=== PATIENT | female | born 2005 | race Caucasian/White ===

== ENCOUNTER 2025-06-05 16:05 | Emergency (ER) | payer OTHER, SELFPAY ==
--- OUTSIDE RECORDS SUMMARY | 2025-06-05 16:08 | XMS_ITS | Clinical Summary ---
Author Organization [facility] [email or web address] Address [address] 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 This disclosure is being madepursuant to the Care Everywhere program and may not contain all information available regarding this patient. Last updated [email or web address] Allergies No known active allergies Medications * Be aware that medications may not be up to date on this document. Alwaysverify current medications with the patient. trimethoprim-po lymyxin B (POLYTRIM) 69157-7.1 UNIT/ML-% ophthalmic solution Instill 1 Drop into right eye 4 times daily. 10 mL 0 0 Active Additional Information Patient not taking.Reported on 08/26/2016 oseltamivir phosphate (TAMIFLU) 6 MG/ML suspension Take 10 mL by mouth 2 times daily 100 mL 9 Active Immunizations Immunization Administration Dates Next Due DTAP/IPV 12/18/2010 DTaP VACCINE IM (6wk-6yrs) 12/21/2007,03/30/2006 ,02/08/2006,2005 HEP A PEDS 2 DOSE 01/07/2009,12/21/2007 HEP B VACCINE, PED/ADOL 03/30/2006,2005, HIB BOOSTER 03/30/2006,02/08/2006,2005 MMR 12/18/2010,11/24/2006 PNEUMOCOCCAL CONJ, PEDS 11/24/2006,03/30/2006,,2005 POLIO IPV 03/30/2006,02/06/2006,2005 VARICELLA 12/18/2010,11/24/2006 Family History Medical History Relation Name Comments Allergies Brother Allergies Father Hypercholesterolemia Maternal Grandfather Other Maternal Grandfather Hearing Loss - Occupational Exposure Hypercholesterolemia Maternal Grandmother Hypercholesterolemia Paternal Grandfather Hypertension Paternal Grandfather Relation Name Status Comments Brother Father Maternal Grandfather Maternal Grandmother Paternal Grandfather Social History Tobacco Use Types Packs/Day Years Used Date Smoking Tobacco: Never Smokeless Tobacco: Never Comments:non smoking househo ld Comments No Sex and Gender Information Value Date Recorded Sex Assigned at Not on file Legal Sex Female 9:58 AM CDT Gender Identity Not on file Sexual Orientation Not on file Last Filed Vital Signs Vital Sign Reading Time Taken Comments Blood Pressure 100/68 07/29/2018 3:46 PM LIDAR SCIENTIST Pulse 110 07/29/2018 3:46 PM LIDAR SCIENTIST Temperature 36.6 C (97.9 F) 07/29/2018 3:46 PM LIDAR SCIENTIST Respiratory Rate 18 07/29/2018 3:46 PM LIDAR SCIENTIST Oxygen Saturation 97% 07/29/2018 3:46 PM LIDAR SCIENTIST Inhaled Oxygen Concentration - - Weight 39.9 kg (88 lb) 07/29/2018 3:46 PM LIDAR SCIENTIST Height 149.9 cm (4' 11) 07/29/2018 3:46 PM LIDAR SCIENTIST Body Mass Index 17.77 07/29/2018 3:46 PM LIDAR SCIENTIST Body Mass Index Percentile 37.38% 07/29/2018 3:4 6 PM LIDAR SCIENTIST Growth Chart: CDC (Girls, 2- 20 Years) Plan of Treatment Health Maintenance Due Date Last Done Comments DTAP/TDAP/TD VACCINES (6 - Tdap) 2016 12/18/2010, 12/21/2007, 03/30/2006, Additional history exists HIV SCREENING 2020 HPV VACCINE (1 - 3-dose series) 2020 CHLAMYDIA/GONORRHEA SCREENING 2021 MENINGOCOCCAL (Group B) VACCINE SHARED DECISION-MAKING (1 of 2 - Standard) 2021 HEPATITIS C SCREENING 09/20/2023 DEPRESSION SCREENING 06/14/2024 COVID-19 VACCINE ( season) 2025 INFLUENZA VACCINE (#1) 2025 ZOSTER VACCINE (1 of 2) 09/25/2055 HEPATITIS B VACCINE Completed 03/30/2006, 2005, 2005 HIB VACCINE Aged Out 03/30/2006, 01/13, 2005 No longer eligible based on patient's age to complete this topic PNEUMOCOCCAL VACCINE Completed 11/24/2006, 03/30/2006, 02/08/2006, Additional history exists MENINGOCOCCAL GROUPS A/C/Y/W VACCINE Aged Out No longer eligible based on patient's age to complete this topic Insurance [employer] [facility] Address: [facility] [id number] [place] [address] * Guarantor: MARLA CORTES Account Type Relation to Patient Date of Phone Billing Address Personal/Family 2005 CO LORENZA CORTES [address] [place] [id number]
[2025-06-05 16:12] VITALS: BP 107/67; PULSE 80; RESP 16; TEMP 36.5; O2SAT 100
--- NOTE | 2025-06-05 16:30 | ED.SKABFB ---
HPI - Skin/Abscess/Foreign Bdy General Chief complaint: Skin/Abscess/Foreign Body Stated complaint: Skin Source: patient and family Mode of arrival: ambulatory Limitations: no limitations History of Present Illness HPI narrative: This is a 19 year old female patient that presents to the urgent care with reports of a rash to her face, hands, arms, and bilateral hips that began wednesday while in [place] and has since worsened. patient and family arrived home today and presented here for evaluation. patient reports that the areas are very itchy, she has picked open areas around her mouth face better now burning. She denies any difficulty swallowing. She denies any exposure to unknown substances. She was swimming in the ocean. She was drinking a lot of Grindstone flavored drinks, but was not haveing any hives or headaches. patient denies any insect bites or animal contact. patient states she has not taken any ATB or used any creams. MD complaint: rash and discoloration Onset (ago): day(s) (3) Tetanus up to date: yes Location: face, LUE, RUE, L hand, R hand, LLE (hip) and RLE (hip and thigh) Severity: moderate Quality: burning, constant and pruritic Pain Consistency: constant Relieving factors: none Exacerbating factors: none Context: none Associated symptoms: itching Treatments prior to arrival: none Related Data Home Medications ?Medication ?Instructions ?Recorded ?Confirmed ?Last Taken ?Type sertraline 50 mg tablet mg 06/05/25 Unknown History Allergies Allergy/AdvReac Type Severity Reaction Status Date / Time No Known Allergies Allergy Verified 06/05/25 16:11 Exam Const: General: healthy appearing Nutritional Appearance: well nourished Orientation/consciousness: patient oriented x3 Limitations: no limitations HENMT: Head: normal to inspection Ears: external ears normal Face/Nose/Sinus: Normal external nose present Face and sinus: other (vesicular rash to the surrounding mouth and left cheek. No crusting. ) Mouth: Yes Normal oral and palatal mucosa present, Yes lip normal, Yes tongue normal, Yes Normal salivary glands and ducts present, Yes oropharynx normal and Yes moist mucous membranes Teeth and gingiva: dentition normal and gingiva normal Throat: posterior oropharynx normal, tonsils normal and uvula midline Eyes: Conjunctivae: conjunctivae normal Pupils: Equal, round and reactive pupils present EOM: EOMs intact bilaterally Direct Ophthalmoscopy: no photophobia Neck: Neck: normal visual inspection and no lymphadenopathy Chest: Chest palpation & inspection: normal inspection of the chest Resp: Effort & Inspection: normal respiratory effort Auscultation: clear to auscultation bilaterally Cardio: Rate: regular rate Rhythm: regular rhythm GI: Auscultation: normal bowel sounds Back/Spine/Pelvis: Back: no CVA tenderness Skin: General skin exam: rashes Rashes: rashes noted vesicles bilateral upper hip , vesicles diffuse face , vesicles bilateral anterior arm , vesicles bilateral anterior hand Neuro: General: patient oriented x3 Cranial nerves: Yes Nystagmus not present Speech: normal speech Gait exam (Neuro): Normal gait present Extrem: General: normal to inspection and no clubbing, cyanosis or edema Psych: Mental Status: mental status grossly normal Affect: normal affect Attitude: cooperative Course Course Emergency Course: This is a 19 year old female patient that presents to the urgent care with reports of a rash to her face, hands, arms, and bilateral hips that began wednesday while in [place] and has since worsened. patient and family arrived home today and presented here for evaluation. patient reports that the areas are very itchy, she has picked open areas around her mouth face better now burning. She denies any difficulty swallowing. She denies any exposure to unknown substances. She was swimming in the ocean. She was drinking a lot of Grindstone flavored drinks, but was not having any hives or headaches. patient denies any insect bites or animal contact. patient states she has not taken any ATB or used any creams. vital stable discussed causes of vesicular rashes, irritation, and treatment. Discussed concern for possible tropical staph infection versus contact dermatitis. Discussed cultures vs treatment, patient mother preferred to treat it awaiting for culture results. Verbalized understanding and agreeable with that plan. Educated patient and mother to keep skin clean and dry. wash twice daily with johnsons baby shampoo, use antibiotic ointment to areas on face, hands, and hips. - do not touch ointment bottle to surface of skin. take hydroxyzine every 8 hours as needed for itching or picking. take benadryl 25 mg po every 6 hours as needed for itching. take antibiotic as prescribed until completed. follow up with primary MD in the next 2-3 days for further evaluation and exam. answer questions to their satisfaction they are agreeable with this plan. Level of Care: Express Care Visit Vital Signs Vital signs: Vital Signs Temperature 97.7 F 06/05/25 16:12 Pulse Rate 80 06/05/25 16:12 Respiratory Rate 16 06/05/25 16:12 Blood Pressure 107/67 06/05/25 16:12 Pulse Oximetry 100 06/05/25 16:12 Oxygen Delivery Room Air 06/05/25 16:12 Temperature 97.7 F 06/05/25 16:12 Pulse Rate 80 06/05/25 16:12 Respiratory Rate 16 06/05/25 16:12 Blood Pressure 107/67 06/05/25 16:12 Pulse Oximetry 100 06/05/25 16:12 Oxygen Delivery Room Air 06/05/25 16:12 MDM MDM Narrative Medical decision making narrative: This is a 19 year old female patient that presents to the urgent care with reports of a rash to her face, hands, arms, and bilateral hips that began wednesday while in [place] and has since worsened. patient and family arrived home today and presented here for evaluation. patient reports that the areas are very itchy, she has picked open areas around her mouth face better now burning. She denies any difficulty swallowing. She denies any exposure to unknown substances. She was swimming in the ocean. She was drinking a lot of Grindstone flavored drinks, but was not having any hives or headaches. patient denies any insect bites or animal contact. patient states she has not taken any ATB or used any creams. vital stable discussed causes of vesicular rashes, irritation, and treatment. Discussed concern for possible tropical staph infection versus contact dermatitis. Discussed cultures vs treatment, patient mother preferred to treat it awaiting for culture results. Verbalized understanding and agreeable with that plan. Educated patient and mother to keep skin clean and dry. wash twice daily with johnsons baby shampoo, use antibiotic ointment to areas on face, hands, and hips. - do not touch ointment bottle to surface of skin. take hydroxyzine every 8 hours as needed for itching or picking. take benadryl 25 mg po every 6 hours as needed for itching. take antibiotic as prescribed until completed. follow up with primary MD in the next 2-3 days for further evaluation and exam. answer questions to their satisfaction they are agreeable with this plan. Differential Diagnosis Differential Diagnosis: Contact dermatitis, cellulitis, topical staph, phyophotodermatitis Medical Records I have reviewed the following patient records and this information was taken into consideration when formulating the assessment and plan.: previous clinic visits Discharge Plan Discharge Clinical Impression: Contact dermatitis Qualifiers: Contact dermatitis type: unspecified Contact dermatitis trigger: unspecified trigger Qualified Code(s): L25.9 - Unspecified contact dermatitis, unspecified cause Cellulitis Qualifiers: Site of cellulitis: unspecified site Qualified Code(s): L03.90 - Cellulitis, unspecified Patient Disposition: Home Condition: Stable Instructions: Antibiotic Form, Cellulitis in Children (ED) Additional Instructions: keep skin clean and dry. wash twice daily with johnsons baby shampoo use antibiotic ointment to areas on face, hands, and hips. - do not touch ointment bottle to surface of skin. take hydroxyzine every 8 hours as needed for itching or picking. take benadryl 25 mg po every 6 hours as needed for itching take antibiotic as prescribed until completed follow up with primary MD in the next 2-3 days for further evaluation and exam Patient Language: Thai Prescriptions: New hydroxyzine HCl 25 mg tablet 25 mg PO TID MDD 75 mg PRN (Reason: itching) Qty: 12 0RF cephalexin 500 mg capsule 500 mg PO QID 7 Days Qty: 28 0RF mupirocin [Centany] 2 % ointment 1 applic topical BID Qty: 22 0RF No Action sertraline 50 mg tablet Follow-up/Referrals: Yan Jean MD [Primary Care Provider, Pediatrics] Time of Disposition: 16:36
== END 2025-06-05 16:40 | disposition home or self-care (01) ==
PROVIDERS: Emergency Provider Nurse Practitioner Family; PCP Pediatrics
DX: L25.9 Unspecified contact dermatitis, unspecified cause (principal); L03.211 Cellulitis of face; L03.114 Cellulitis of left upper limb; L03.113 Cellulitis of right upper limb; L03.116 Cellulitis of left lower limb; L03.115 Cellulitis of right lower limb
CPT/HCPCS: 99213; G0463